=== PATIENT | female | born 1945 | race Caucasian/White ===

== ENCOUNTER 2016-08-04 09:11 | Inpatient (IN) | payer BC, MEDICARE ==
[2016-07-28 17:29] LABS: HEMATOCRIT 38.9 % (36.0-48.0); HEMOGLOBIN 13.2 g/dL (12.0-16.0)
[2016-07-28 17:39] LABS: CALCIUM, SERUM 8.9 MG/DL (8.5-10.4); CHLORIDE, SERUM 100 MMOL/L (96-112); CO2 (CARBON DIOXIDE) 31 MMOL/L (24-34); CREATININE 1.55 MG/DL (0.55-1.02); GFR AFRICAN AMERICAN 39 ML/MIN (>=60); GFR NON AFRICAN AMERICAN 34 ML/MIN (>=60); POTASSIUM, SERUM 3.8 MMOL/L (3.5-5.3); SODIUM, SERUM 141 MMOL/L (135-148)
[2016-07-28 17:41] LABS: BUN (BLOOD UREA NITROGEN) 25 MG/DL (6-23); GLUCOSE, SERUM 183 MG/DL (60-99)
--- NOTE | ~2016-08-04 | CN ---
Consultation Report [facility] [address] [place]. [address] NAME: ITALIA EPREZ : 47 STATUS : ADM IN PAT#: [id number] AGE: 71 ADM/REG DATE : 08/04/16 MR#: [id number] REPORT SERV DATE: 08/05/16 DICTATED BY: ALISHA PAZ DATE: 08/05/16 REPORT STATUS : Draft TRANSCRIBED BY: MODChetan DATE: 08/05/16 MEDICAL CONSULTATION NOTE DATE OF CONSULTATION: EXAMINING PHYSICIAN: Alisha Paz M.D. REASON FOR CONSULTATION: Diabetes control, on insulin pump, and hypoglycemia. HISTORY OF PRESENT ILLNESS: This is a morbidly obese 71-year-old white female, who is followed by Dr. Marla Del Toro. She has an insulin pump with a basal rate of 30 units/hour. They do not use a bolus for meals and allow the pump to calculate the correction factor by connection with their OneTouch meter. She had trouble waking up this morning, blood sugar was 54. Blood sugars usually run between 98 and 140 at home with the consistent basal rate of 72 units/24 hours or 3 units/hour. The patient is alert now, has no complaints. She had phase 1 of her back surgery and is going to have phase 2 tomorrow. The insulin pump has been removed by her . PAST MEDICAL HISTORY: She has had the insulin pump for the last four or five years. She does have depression, history of C difficile in 2012 with diverticulitis, a history of hiatal hernia. Diabetes type 2 in the face of morbid obesity for many years, approximately 11. She does have some swelling of her lower extremities, high blood pressure, hyperkalemia, hypersomnolence. She had left heel spur removed, had EGD on 10/18/2006, right knee surgery, and total knee replaced on the right side. Irritable bowel syndrome and hemorrhoids. She has had tonsillectomy, adenoidectomy, and appendectomy in the past. She has chronic kidney disease stage 3, history of anemia, vitamin B12 deficient, history of osteoporosis, pancreatitis, stomach ulcer, osteopenia, and distal symmetric polyneuropathy. HOME MEDICATIONS: Are listed as follows: Insulin 3-5 units continuous infusion for basal rate, metolazone 5 mg daily, Protonix 40 mg p.o. daily, propranolol LA 120 mg p.o. every evening, sertraline 100 mg p.o. q.p.m., valsartan 320 mg p.o. q.p.m., Xanax 1 mg p.o. three times a day as needed for anxiety, atorvastatin 10 mg p.o. at bedtime, Plavix 75 mg p.o. daily, Pristiq 50 mg p.o. each evening, gabapentin 600 mg p.o. t.i.d., and hydrocodone 5/325 one p.o. q.4 hours p.r.n. pain. ALLERGIES: INCLUDE THE FOLLOWING: PENICILLIN, ASPIRIN, WITH ADVERSE REACTIONS TO NONSTEROIDAL ANTI INFLAMMATORY AGENTS WITH NAUSEA AND VOMITING. SULFADIAZINE WHICH UPSETS HER STOMACH, AND ADHESIVE TAPE WHICH CAUSES A RASH AND LOOSENING OF HER SKIN. SOCIAL HISTORY: She is . Lives with her . They attend the [employer] in [place] and the [employer]. She does not smoke or drink. She worked Consultation [address] 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 She was raised in [place] and has now moved back here. They do have a daughter, who is alive and well. Attends the [employer]. FAMILY HISTORY: Diabetes runs in the family. REVIEW OF SYSTEMS: She has had somnolence today, but the back pain is being corrected now, history of depression, high blood pressure, diabetes have been the problems in the past. She has no shortness of breath, chest pain, fever, chills, night sweats, melena, hematemesis, nausea, vomiting, diarrhea, unilateral weakness, fits, seizures, or convulsions. The remainder of the review of systems is negative. PHYSICAL EXAMINATION: GENERAL: Morbidly obese, white female, in no acute distress. VITAL SIGNS: Her blood pressure is 156/72 with a heart rate of 88, respiratory rate 16, afebrile. HEENT: EOMI. Sclerae clear. Conjunctivae pink. NECK: No bruit. No JVD. CHEST: Clear to A and P. HEART: Regular S1, S2 without murmur, rub, or click. ABDOMEN: Grossly obese. Nontender. Bowel sounds positive. No HSM. EXTREMITIES: Have no edema. She does have distal pulses intact in her dorsalis pedis and posterior tibial. NEUROLOGIC: She withdraws to plantar stimulation. She has leg immobilizers on now. SKIN: Without rash, ecchymosis, or bruising. LYMPHATICS: There is no adenopathy palpable. LABORATORY DATA: Her glucose this morning as low as 58 on OneTouch, but all of them have been less than 100 on the 3 units/hour and limited diet. I believe we should stop the insulin pump. Her creatinine was 1.55 with BUN 25, sodium 141, potassium 3.8, glucose on admission was 183. Her hemoglobin is 13, hematocrit 38.9. ASSESSMENT: 1. Diabetes type 2 with insulin resistance, likely secondary to morbid obesity. Insulin pump has been removed by her , and we will start subcutaneous insulin Levemir at half the rate at 36 units per 24 hours and see how this does for her with small boluses of 5 units before each meal, holding if the blood sugar is less than 80. 2. Hypertension, it is usually okay in the 120 range. Postop, it was slightly elevated at 156, though intraoperatively review was 120. We will not change medication. 3. Low back pain with intention for surgical relief. Plan for second step of the surgery tomorrow. 4. Depression, on antidepressants. Consultation Report [facility] [address] [place]. [address] NAME: ITALIA PEREZ : 47 STATUS : ADM IN [facility]#: [id number] AGE: 71 ADM/REG DATE : 08/04/16 MR#: [id number] REPORT SERV DATE: 08/05/16 DICTATED BY: ALISHA PAZ DATE: 08/05/16 REPORT STATUS : Draft TRANSCRIBED BY: MODL DATE: 08/05/16 5. Morbid obesity. 6. Hypoglycemia with pump. It has been discontinued. This is causing some hypoglycemic encephalopathy. The patient is getting better, now having eaten. We will start the long-acting insulin tonight and boluses now if she is eating. Thank you for this consultation. We will continue to follow along with you. CHU/MODL Alisha Paz M.D. / [id number] CC: Alexx Smith II, M.D.
--- NOTE | ~2016-08-04 | OP ---
Record Of Operation [facility] [address] [place]. [address] NAME: ITALIA PEREZ : 47 STATUS : ADM IN PAT#: [id number] AGE: 71 ADM/REG DATE : 08/04/16 MR#: [id number] REPORT SERV DATE: 08/08/16 DICTATED BY: MEGAN BARRERA II DATE: 08/08/16 REPORT STATUS : Draft TRANSCRIBED BY: MODL DATE: 08/08/16 DATE OF PROCEDURE: 08/04/2016 PREOPERATIVE DIAGNOSES: 1. Severe spinal stenosis, L3-4, L4-5 with severe facet changes and facet instability L3- L4, L4-5. 2. Morbid obesity. 3. Intractable leg pains with functional paraplegia. POSTOPERATIVE DIAGNOSES: 1. Severe spinal stenosis, L3-4, L4-5 with severe facet changes and facet instability L3- L4, L4-5. 2. Morbid obesity. 3. Intractable leg pains with functional paraplegia. PROCEDURE: 1. L3-4, L4-5, anterior interbody arthrodesis. 2. Application of prosthetic devices L3-4, L4-5. 3. Anterior instrumentation, L3-4 (we were unable to successfully place instrumentation at L4-5). 4. Use of allograft substitute and bone morphogenic protein. SURGEON: Megan Barrera M.D. FLUIDS: 1500 mL LR. ESTIMATED BLOOD LOSS: 75 mL. DRAINS: No drains. COMPLICATIONS: No complications. ANTIBIOTIC: Preoperatively. IMPLANTS: Globus. PREOPERATIVE HISTORY: This is a very friendly, 71-year-old female, who is very intelligent and appropriate but unfortunately has been essentially home bound since March because of severe pains radiating into the buttocks and legs especially on the right. She is largely having to stay in the bed. Leg pain is so severe when she stands to walk. She is able to mobilize into the kitchen and can have family over to visit her. However, she is just simply miserable. Her is able to help her some. He is still working overall. They both are very pleasant and very keenly aware of this unfortunate situation that she is facing. They of course realize she is morbidly obese. Her body mass index is 52 but she again is found to have severe stenosis at L3-L4 and L4-5. This overall we discussed was going to be very difficult case for many surgical approach perspective. I overall felt that Record Of Operation [facility] [address] [facility] [address] NAME: ITALIA PEREZ : 47 STATUS : ADM IN PAT#: [id number] AGE: 71 ADM/REG DATE : 08/04/16 MR#: [id number] REPORT SERV DATE: 08/08/16 DICTATED BY: MEGAN BARRERA II DATE: 08/08/16 REPORT STATUS : Draft TRANSCRIBED BY: MODChetan DATE: 08/08/16 an anterior approach alone would not likely suffice. Additionally, I did not think a posterior approach alone would largely suffice so overall felt that we needed to get some type of stability on the anterior column and also be able to hopefully get a successful arthrodesis. I overall felt that a minimally invasive lateral approach was likely our best option from a risk benefit perspective. I discussed with her and her the approach as well as the downside risks potentially to femoral nerve branches. We also discussed the potential for blood loss as well as again still needing the stage II posterior decompression and hopefully adjunctive stabilization. PROCEDURE: After informed consent was obtained, the patient was brought to the operating room at her request and general anesthesia achieved. At this point, our difficulties began because of her size. She again is very large, and it took double the amount of staff to help position her. The time of the positioning until the time of the actual initiation of surgery took approximately double the normal time. We then brought in fluoroscopy and confirmed we were able to successfully see the L3-L4 and L4-L5 disk spaces. The iliac crest appeared to be manageable in terms of its position relative to the L4-L5 disk space. At this point, the left lateral flank was prepped and draped in a sterile fashion. The incision was then made in a vertical manner. We then dissected down to the fascia. Again, this was an extremely deep wound because of her size. We had to use approximately 140 cm blades on the Globus retractor system. We then had neuro-monitoring available and did not identify any femoral nerve branches along the anterior third of the psoas muscle. I went more anterior to the psoas but not completely anterior to it. We did dissect through the very anterior 25% of the psoas muscle using neuro monitoring. The tubular retractor was then established at L3-L4. Under loupe magnification head lamp, the disk was now removed with the pituitary rongeurs, Kerrison rongeurs, and the curettes. The upgoing and downgoing pituitaries were used as well as the rasps. Ultimately, we were able to remove a very decent amount of disk and cartilage from the endplates. The subchondral bone was not violated. Following irrigation, the bone morphogenic protein was placed into the anterior column. We then placed the expandable prosthetic device into L3-L4. This was placed across the apophyseal ring bilaterally. Next, we then removed the protractor and then essentially recreated the tubular retractor set up. We had to also again use neuro-monitoring. We were able to access the L4-L5 disk space. We did fight with the iliac crest as anticipated but I was able to successfully dock the tubular retractor over the L4-5 disk space. At this point, the knife was used to incise the annulus followed by diskectomy. The angle was not ideal but we were able to still manage the angle and remove disc and cartilage from the endplates. Subchondral bone was minimally violated because of the angle. At this point, irrigation was performed, and the prosthetic device well placed into the L4-L5 anterior column across the apophyseal rings bilaterally. At this point, the prosthetic device was acceptably distracted for better fit. At this point, I was pleased with the diskectomy at L3-4 and L4-5 and overall, felt that we had laid a reasonable ground work for reconstructing her L3-L4 and L4-5 levels. Record Of Operation [facility] [address] [facility] [place]. [address] NAME: ITALIA PEREZ : 47 STATUS : ADM IN PAT#: [id number] AGE: 71 ADM/REG DATE : 08/04/16 MR#: [id number] REPORT SERV DATE: 08/08/16 DICTATED BY: MEGAN BARRERA II DATE: 08/08/16 REPORT STATUS : Draft TRANSCRIBED BY: MODL DATE: 08/08/16 At this point, we then placed an anterior plate into L3 and L4. A short screw was placed into L3 and L4 so as to not hopefully create a stress riser. At this point, multiplanar imaging confirmed acceptable placement of the implants. We could not safely place an L4-L5 plate and so therefore, did not place one at L4-L5. Next, the standard closure was performed. We spent a significant amount of time closing the fascia so as to hopefully decrease the risk of a hernia. Overall again, I cannot stress enough how difficult this case was because of her size but overall given the complexity of the case and her size, I felt fairly satisfied with the technical aspects of the case. However, it simply did take a long time and overall at this point, she was safely extubated and transferred back to PACU following standard dressing application. JJ/MYLESL Megan Barrera II, M.D. / [id number] CC: Alexx Smith II, M.D.
--- NOTE | ~2016-08-04 | CN ---
Consultation Report [facility] [address] [place]. [address] NAME: ITALIA PEREZ : 47 STATUS : ADM IN PAT#: [id number] AGE: 71 ADM/REG DATE : 08/04/16 MR#: [id number] REPORT SERV DATE: 08/06/16 DICTATED BY: DATE: REPORT STATUS : Draft TRANSCRIBED BY: MODL DATE: 08/06/16 NEUROLOGY CONSULTATION DATE OF CONSULTATION: 08/06/2016 REASON FOR CONSULT: Possible stroke. HISTORY OF PRESENT ILLNESS: This is a 71-year-old female presented to [facility] for two phase back surgery. The patient has had first stage of back surgery on 08/04/2016. Since then, the patient was noted to have progressive encephalopathy with the patient at times cannot state her name and cannot state her birthday, does not recognize the family members such as her and her son and was noted to have difficulty following commands and at time was noted to have lethargy and difficulty to arouse and altered sensation. The patient at times was noted to have hypoglycemic episodes, require resuscitation and subsequent removal of the patient's insulin pump prior to the hospitalization and denies similar events in the past, and the patient's denies any current apparent focal weakness or numbness. No reports of seizure like activity was otherwise noted. The patient's also denies any recent increased psychosocial stress or any emotional difficulties. The patient prior to the surgery was not noted to have any fever, chills, nausea, vomiting, or recent illness. PAST MEDICAL HISTORY: The patient's past medical history is significant for type 2 diabetes, as well as history of insulin pump for the past four to five years with a history of depression as well as C. difficile infection, diverticulitis, hiatal hernia, morbid obesity, hypersomnolence, hyperkalemia, with the patient noted to have chronic kidney disease stage III, history of vitamin B12 deficiency, as well as a prior history of osteoporosis, gastric ulcer, and distal symmetric polyneuropathy. No reports of cognitive deficits or memory difficulty was reported prior to the hospitalization. SOCIAL HISTORY: Per medical record, the patient does not have any tobacco, alcohol, or recreational drug usage. FAMILY HISTORY: Significant for diabetes. ALLERGIES: THE PATIENT WAS NOTED TO HAVE FAIRLY EXTENSIVE ALLERGY HISTORY CONSISTS OF PENICILLIN, ASPIRIN, NONSTEROIDAL ANTI-INFLAMMATORY DRUGS, SULFA, AND ADHESIVE TAPE. MEDICATIONS: The patient's home medications consist of Xanax, Lipitor, Plavix, Pristiq, Neurontin, Follett, Humalog, Zaroxolyn, Protonix, Inderal, Zoloft, and Diovan. REVIEW OF SYSTEMS: Unfortunately is unable to be obtained from the patient secondary to the patient's current mental status. Consultation Report [address] [place]. [address] NAME: ITALIA PEREZ : 47 STATUS : ADM IN [facility]#: [id number] AGE: 71 ADM/REG DATE : 08/04/16 MR#: [id number] REPORT SERV DATE: 08/06/16 DICTATED BY: DATE: REPORT STATUS : Draft TRANSCRIBED BY: JAYA DATE: 08/06/16 PHYSICAL EXAMINATION: VITAL SIGNS: Overnight, the patient was noted to have vital signs with T-max of 100.8, heart rate of 66 to 84, respirations of 12 to 20, and blood pressure of 105 to 143 over 49 to 88. GENERAL: The patient is well developed, well nourished, in no acute distress. CARDIOVASCULAR: Regular rate and rhythm. No carotid bruits were otherwise auscultated. PULMONARY: Clear to auscultation bilaterally. NEUROLOGICAL EXAMINATION: Generally, the patient is alert, unable to answer orientation questions, able to repeat examiner's questions. The patient is only able to follow rare simple commands and have difficulties even with visual cues. Otherwise, the patient does demonstrated spontaneous movement of the bilateral upper extremity against gravity. Also, mild tremor and question of the myoclonus jerk was noted, especially in the right upper extremity. Difficult to evaluate if the patient has asterixis as the patient refused to maintain bilateral upper extremity on extension on for a period of time. The patient otherwise was noted to have roughly symmetrical facial expression. Pupils equal, round, and reactive. Horizontal eye movement was noted with visual stimulus tracking with blink to threat response noted to be intact. The patient does demonstrated sensation in bilateral upper extremity as well as sensation to noxious stimulation in bilateral lower extremity. Deep tendon reflex was 2+ in bilateral upper extremity and 3+ in bilateral lower extremity at the time of evaluation. Minimal spontaneous movement in the bilateral lower extremity was otherwise noted. Gait and cerebellar examination is unable to be performed secondary to the patient's current mental status. LABORATORY STUDIES: Demonstrated a white blood cell count of 13.6, hemoglobin of 9.9, hematocrit of 29.2, and platelet count of 159. Chemistry panel; sodium of 135, potassium of 4.7, chloride of 99, bicarb of 24, BUN of 22, creatinine of 1.63, glucose of 254, calcium of 8.5. Serum pH of 7.31, pCO2 of 50, pO2 of 114. Bicarb of 24.5 and O2 saturation of 97.9. Urinalysis demonstrated trace leukocyte esterase, but negative nitrite. No neuro imaging was otherwise available at the time of evaluation. IMPRESSION: Encephalopathy, with the symptom ongoing since the surgery on 08/04/2016, with the patient noted to be confused as well as disoriented and not able to state her name, birthday, or recognize the family members. The patient's family denies similar events in the past. No reports of cognitive deficits. On examination, the patient is able to follow rare commands even with visual cues. The patient, otherwise is unable to answer any orientation question, but is able to repeat a question. Appeared to be somewhat emotional on examination as well. Otherwise, myoclonus jerk was noted. The right upper extremity appeared to be greater with the spontaneous bilateral upper extremity movement noted against gravity. At this time, concern for possible metabolic etiology versus medication side effect versus embolic stroke versus seizure versus psychogenic etiology. We will obtain laboratory study. We will hold or minimize pain medications and narcotics. We will obtain MRI of the brain as well as EEG in the morning. RECOMMENDATION: 1. MRI of the brain without contrast. Consultation Report [address] [place]. [address] NAME: ITALIA PEREZ : 47 STATUS : ADM IN [facility]#: [id number] AGE: 71 ADM/REG DATE : 08/04/16 MR#: [id number] REPORT SERV DATE: 08/06/16 DICTATED BY: DATE: REPORT STATUS : Draft TRANSCRIBED BY: MODL DATE: 08/06/16 2. EEG in the morning. 3. We will hold and minimize narcotics. 4. Serum ammonia, TSH, free T4, vitamin B12, folate, and thiamine level. [facility]/MODL Michael Barker MD / [id number] CC: Alexx Smith II, M.D.
--- NOTE | ~2016-08-04 | DS ---
Discharge Summary [facility] [address] [place]. [address] NAME: ITALIA PEREZ : 47 STATUS : DIS IN PAT#: [id number] AGE: 71 ADM/REG DATE : 08/04/16 MR#: [id number] REPORT SERV DATE: 08/25/16 DICTATED BY: MEGAN BARRERA II DATE: 08/24/16 REPORT STATUS : Draft TRANSCRIBED BY: JAYA DATE: 08/24/16 Data Collection from hospitalization DISCHARGE DIAGNOSES: 1. Severe spinal stenosis at L3-L4 and L4-L5 with severe facet changes and facet instability at L3-L4 and L4-L5. 2. Morbid obesity. 3. Intractable leg pain with functional paraplegia. 4. Diabetes. 5. Hypertension. 6. Cataracts. CONSULTATIONS: 1. Michael Barker MD. 2. Gabriele Conn M.D. PROCEDURES PERFORMED: 1. L3-4 and L4-5 anterior interbody arthrodesis, application of prosthetic devices at L3-4 and L4-5, anterior instrumentation at L3-4 (we were unable to successfully place instrumentation at L4-5), use of allograft substitute and bone morphogenic protein on 08/04/2016. 2. MRI of the brain without contrast on 08/06/2016. 3. Electroencephalogram on 08/09/2016. PATHOLOGY: Lumbar spine repair - fragmented cartilage and soft tissue. No evidence was seen of an infectious or neoplastic process. MEDICATIONS: Lipitor 20 mg at bedtime, Lotensin 10 mg daily, vitamin B12 1000 mcg daily, Pristiq 50 mg every evening, Pepcid 20 mg twice a day, Neurontin 100 mg every eight hours, Apresoline 25 mg every eight hours, [place] 5/325 one tablet every four hours as needed, Humalog 3-5 units subcutaneously continuous infusion as instructed, Protonix 40 mg at bedtime, Zoloft 100 mg every evening, and vancomycin 125 mg every six hours. CONDITION AT DISCHARGE: Stable. DISPOSITION: The patient was discharged home to be followed by home health care on an 1800- calorie diabetic diet with activities as instructed. She would follow up with me on 08/31/2016. She would follow up with Dr. Del Toro 7 to 10 days following discharge. HOSPITAL COURSE: This is a 71-year-old female who presented for examination of her tailbone. The patient said she fell the week of . She said she was lifting something off the floor and lost her balance causing her to fall directly on her tailbone. She went to the emergency room the following day and said she did not receive any medical treatment. She said that within a few days the pain had gotten worse and she presented to [facility]. She reported a pain level of 9/10 and she said this was the level after her pain medications. She says the leg pain is severe when she has to stand and walk. She said she was simply miserable. She is morbidly obese. Her body mass index is 52. She was found to have severe stenosis at L3-L4 and L4-L5. Treatment options were discussed and it was Discharge Summary [address] [place]. [address] NAME: ITALIA PEREZ : 47 STATUS : DIS IN PAT#: [id number] AGE: 71 ADM/REG DATE : 08/04/16 MR#: [id number] REPORT SERV DATE: 08/25/16 DICTATED BY: MEGAN BARRERA II DATE: 08/24/16 REPORT STATUS : Draft TRANSCRIBED BY: JAYA DATE: 08/24/16 elected to proceed with surgical intervention. She was admitted to the hospital at this time for further evaluation and treatment. Upon admission, she was taken to the operating room where she underwent the above-mentioned procedure. She tolerated this well, and there were no complications. On postop day #1, she was seen by Dr. Gabriele Conn regarding diabetes controlled, on insulin pump, and hypoglycemia. She had some trouble waking up that morning. Her blood sugar was found to be 54. She had undergone diabetes education. The patient had undergone phase 1 of her back surgery and was going to have phase 2 the following day. Her insulin pump had been removed by her . He felt that we should stop insulin pump. Her creatinine level was 1.55. Her type 2 diabetes with insulin resistance was felt likely secondary to morbid obesity. We were going to start subcutaneous insulin Levemir at half the rate and see how she does with this with small boluses of 5 units before each meal. We would hold this if blood sugar was less than 80. Postoperatively, her blood pressure had been slightly elevated at 156, though intraoperatively, it was 120. We were not going to change her medication. The second step of her surgery was planned for the following day. She was on antidepressants for her depression. On 08/06/2016, the patient was going to undergo surgical intervention that had an altered mental status. She was felt to have encephalopathy and Dr. Michael Barker saw the patient in consultation regarding possible stroke. Since the first stage of her back surgery on 08/04/2016, she has had progressive encephalopathy and at times she could not state her name or birthday and did not recognize family members such as her and son. She had difficulty following commands, and at times, was found to have lethargy with difficult to arouse and had altered sensation. She has had some hypoglycemic episodes and required resuscitation with subsequent removal of her insulin pump. The patient has been denied any similar events in the past. The patient has been denied any current apparent focal weakness or numbness. There were no reports of seizure-like activity noted. Her also denied any recent increased psychosocial stress or any emotional difficulties. She appeared somewhat emotional on exam, otherwise, myoclonic jerk was noted. The right upper extremity appeared to be greater with the spontaneous bilateral upper extremity movement noted against gravity. At this time, there was concern for possible metabolic etiology versus medication side effect versus embolic stroke versus seizure versus psychogenic etiology. Labs were going to be obtained. We would hold or minimize pain medication and narcotics. An MRI of the brain as well as an EEG were requested. Serum ammonia, TSH, free T4, vitamin B12, folate, and thiamine levels were going to be checked. MRI of the brain without contrast was performed. No acute infarction or bleed was seen. There was mild atrophy. There was a mild amount of gliotic changes secondary to prior small vessel ischemic event. On 08/07/2016, her T-max was 100.1. She could follow simple commands. Repeat ammonia level was going to be checked. We would treat this if there was persistent elevation. Vitamin B cell supplementation and thiamine trial were going to began. She seems over-sedated still, but was easily aroused. She was not speaking. The following day, her family had reported mild symptom improvement. She was able to state her name and birthday. Her T-max was 99.6. Ammonia level was 36. She was restless and still had some confusion. On 08/09/2016, electroencephalogram was performed. It was considered abnormal secondary to the presence of generalized slowing as well as right-sided slowing and decreased amplitude, compared to the left side which suggests possible right hemisphere dysfunction or structural abnormality. Discharge Summary [facility] [address] [facility] [address] NAME: ITALIA PEREZ : 47 STATUS : DIS IN PAT#: [id number] AGE: 71 ADM/REG DATE : 08/04/16 MR#: [id number] REPORT SERV DATE: 08/25/16 DICTATED BY: MEGAN BARRERA II DATE: 08/24/16 REPORT STATUS : Draft TRANSCRIBED BY: MODL DATE: 08/24/16 In addition, occasional triphasic wave was seen throughout her EEG study. There was concern for possible metabolic etiology for her confusion. Supportive care continued. Vitamin B12 supplementation was continued. On 08/10/2016, urinalysis was going to be checked. It was suspected that medication was playing a major role in her symptom. Dilaudid, Valium, and Benadryl were discontinued and we decreased the dose of Xanax and Neurontin. Urinalysis was going to be checked. On 08/11/2016, she seemed much better. She was awake and talkative. Her acute encephalopathy was resolving and was felt most likely due to medications. She was eating well. She was not complaining of pain at all. On 08/12/2016, she had two formed stools. She was found to be C. difficile positive. She has a history of C. difficile two years ago. She was progressing with Physical Therapy. She denied any pain. Discharge planning was performed. Oral vancomycin continued. Hydralazine was being given as needed. On 08/14/2016, she had no new complaints. She was alert and cooperative. The patient wanted to continue on her insulin pump at home. She refused Levemir/NovoLog/70/30. Stage two of her surgical intervention would be performed at a later date. Discharge instructions were given. Due to her improved and stable condition, she was discharged home with the above-stated instructions. Information collected by: Paola Mustafa I submit the above information as my discharge summary. GABE/JAYA Megan Barrera II, M.D. / [id number] CC: Alexx Smith II, M.D. Chun C. Huang, MD
--- NOTE | ~2016-08-04 | EEG ---
Electroencephalogram [facility] [address] [place]. [address] NAME: ITALIA PEREZ : 47 STATUS : ADM IN PAT#: [id number] AGE: 71 ADM/REG DATE : 08/04/16 MR#: [id number] REPORT SERV DATE: 08/09/16 DICTATED BY: DATE: REPORT STATUS : Draft TRANSCRIBED BY: MODL DATE: 08/09/16 CLINICAL INDICATION: Encephalopathy. DESCRIPTION: This EEG was performed using 10/20 electrode placement system. During the EEG study, the patient was noted to have mildly asymmetric background activity with right-sided hemisphere appeared to be slower with mild decreased amplitude compared to her left side. The patient, in addition, was noted to have intermittent generalized slowing mostly in the theta region with slowing at times to the delta region. Otherwise, at times, the patient's brain activity reached the alpha region at roughly 9 hertz. Photic stimulation was performed. No clear driving response was seen. The patient, in addition, was also noted to have occasional triphasic wave, no electrographic seizure was seen during today's EEG study. Hyperventilation was not performed secondary to patient's mental status as well as underlying medical condition. During her EEG study, no electrographic seizure was otherwise noted. No seizure discharge was seen. INTERPRETATION: This EEG study obtained mostly during awake, but confused state. It may be considered abnormal secondary to presence of generalized slowing, as well as right-sided slowing and decreased amplitude compared to the left side suggests possible right hemisphere dysfunction or structural abnormality. In addition, occasional triphasic wave was also seen throughout her EEG study. Concern for possible metabolic etiology for patient's confusion. Clinical correlation is otherwise recommended. [facility]/MODL Michael Barker MD / [id number] CC: Alexx Smith II, M.D.
[~2016-08-04 09:11] MED LIST: ACTONEL PO; ADVIL PO; AMB10 PO; BENTYL10 PO; BUM1 PO; CAT1 PO; DCN100 PO; DIOVAN320 MG PO; ENABLEX15 PO; EXFORGE1 TA3 PO; FLEX PO; FOLIC ACID400 MC1 PO; HUMALOG; HUMAPUMP SC; I10 PO; I20 PO; INDE120LA PO; IRON IV; LEVBID PO; LEVSINTAB PO; LIPITOR10 PO; LOP25 PO; LORTAB 5 PO; METHOC500B PO; MICARDIS40 PO; MULTIVITAMIN PO; NEUR100 PO; NEUR600 PO; NEUR800 PO; NORCO1 TA1 PO; PLAVIX PO; PRAVAC PO; PRILOSEC40 MG PO; PRISTIQ50 MG PO; PROTONIX PO; PROZAC 20 MG CA20 MG OR; PROZAC40 MG PO; REQUIP3 PO; SKELAXIN8 PO; SPIRO25 PO; TRICOR145 PO; VITAMIN D; VITAMIN D1000 UNI1 PO; VITAMIN D2000 UNIT PO; XANAX1 MG PO; Z5 PO; ZAROX2.5B PO; ZAROXOLYN10 MG OR; ZETIA PO; ZINC PO; ZOL100 PO; [UNRECOGNIZED DRUG - OTHER] PO; [UNRECOGNIZED DRUG - OTHER] SC
[2016-08-06 07:56] LABS: BASOPHILS 0.1 %; BASOPHILS ABSOLUTE 0.02 10/3/uL (0.0-0.16); EOSINOPHILS 0.4 %; EOSINOPHILS ABSOLUTE 0.05 10/3/uL (0.0-0.53); IMMATURE GRANULOCYTES 0.4 %; IMMATURE GRANULOCYTES ABSOLUTE 0.06 10/3/uL (0.0-0.11); LYMPHOCYTES 10.7 %; LYMPHOCYTES ABSOLUTE 1.45 10/3/uL (0.67-4.30); MEAN CORPUS HGB CONC 33.9 g/dL (32.0-36.0); MEAN CORPUSCULAR HEMOGLOB 31.6 pg (26.0-34.0); MEAN CORPUSCULAR VOLUME 93.3 fL (80-100); MONOCYTES 13.7 %; MONOCYTES ABSOLUTE 1.86 10/3/uL (0.21-1.20); NEUTROPHILS 74.7 %; NEUTROPHILS ABSOLUTE 10.16 10/3/uL (2.02-8.40); RBC DISTRIBUTION WIDTH 12.7 % (12.0-16.0)
[2016-08-06 08:00] LABS: HEMATOCRIT 29.2 % (36.0-48.0); HEMOGLOBIN 9.9 g/dL (12.0-16.0); MANUAL DIFF NO %; PLATELET COUNT 159 10/3/uL (150-400); RED CELL COUNT 3.13 10/6/uL (4.0-5.6); WHITE BLOOD CELLS 13.6 10/3/uL (4.5-10.5)
[2016-08-06 08:12] LABS: BUN (BLOOD UREA NITROGEN) 22 MG/DL (6-23); CALCIUM, SERUM 8.5 MG/DL (8.5-10.4); CHLORIDE, SERUM 99 MMOL/L (96-112); CO2 (CARBON DIOXIDE) 24 MMOL/L (24-34); CREATININE 1.63 MG/DL (0.55-1.02); GFR AFRICAN AMERICAN 37 ML/MIN (>=60); GFR NON AFRICAN AMERICAN 32 ML/MIN (>=60); GLUCOSE, SERUM 254 MG/DL (60-99); POTASSIUM, SERUM 4.7 MMOL/L (3.5-5.3); SODIUM, SERUM 135 MMOL/L (135-148)
[2016-08-06 12:32] LABS: INSTRUMENT SERIAL # 8083
[2016-08-06 12:33] LABS: ALLENS TEST Pos; CARBOXYHEMOGLOBIN 0.7 % (0-3); DEVICE NC; HCO3 (ACTUAL BICARBONATE) 24.5 MEQ/L (23-27); HEMOBLOGIN CONTENT 10.2 G/DL (12-16); METHEMOGLOBIN 0.3 % (0-3); O2 CONTENT 14.1 VOL% (18-24); OPERATOR ID 13624; PCO2 (CO2 TENSION) 50 MMHG (35-45); PO2 (O2 TENSION) 114 MMHG (79-93); SAMPLE Arterial; pH 7.31 (7.37-7.43)
[2016-08-06 14:33] LABS: ASCORBIC ACID (UR NOT ORDER) NEG (NEG); BILIRUBIN, URINE NEGATIVE (NEG); KETONE, URINE TRACE MG/DL (NEG); LEUKOCYTE ESTERASE(NOT OR TRACE (NEG); WBC (NOT ORDERED) (RFLEX) 3 (0-5)
[2016-08-06 19:01] LABS: FOLATE 9.2 NG/ML (>5.2); FREE T4 1.35 NG/DL (0.76-1.46); ULTRASENSITIVE TSH 2.1 MCIU/ML (0.358-3.740)
[2016-08-07 06:12] LABS: CALCIUM, SERUM 8.4 MG/DL (8.5-10.4); CHLORIDE, SERUM 101 MMOL/L (96-112); CO2 (CARBON DIOXIDE) 26 MMOL/L (24-34); CREATININE 1.57 MG/DL (0.55-1.02); GFR AFRICAN AMERICAN 38 ML/MIN (>=60); GFR NON AFRICAN AMERICAN 33 ML/MIN (>=60); POTASSIUM, SERUM 4.2 MMOL/L (3.5-5.3); SODIUM, SERUM 138 MMOL/L (135-148); TRIGLYCERIDE 135 MG/DL (< 150)
[2016-08-07 06:13] LABS: BUN (BLOOD UREA NITROGEN) 26 MG/DL (6-23); CHOL/HDL RATIO(NOT ORDER) 3.7 (0-5); CHOLESTEROL 126 MG/DL (< 200); GLUCOSE, SERUM 195 MG/DL (60-99); HDL CHOLESTEROL 34 MG/DL (> 49); LDL CHOLESTEROL 65 MG/DL (< 130); NON-HDL CHOLESTEROL 92 MG/DL (< 160)
[2016-08-07 06:45] LABS: BASOPHILS 0.1 %; BASOPHILS ABSOLUTE 0.01 10/3/uL (0.0-0.16); EOSINOPHILS 0.8 %; EOSINOPHILS ABSOLUTE 0.08 10/3/uL (0.0-0.53); HEMATOCRIT 26.9 % (36.0-48.0); IMMATURE GRANULOCYTES 0.3 %; IMMATURE GRANULOCYTES ABSOLUTE 0.03 10/3/uL (0.0-0.11); LYMPHOCYTES 13.2 %; LYMPHOCYTES ABSOLUTE 1.36 10/3/uL (0.67-4.30); MANUAL DIFF NO %; MEAN CORPUS HGB CONC 33.5 g/dL (32.0-36.0); MEAN CORPUSCULAR HEMOGLOB 31.3 pg (26.0-34.0); MEAN CORPUSCULAR VOLUME 93.4 fL (80-100); MONOCYTES 10.7 %; NEUTROPHILS 74.9 %; NEUTROPHILS ABSOLUTE 7.73 10/3/uL (2.02-8.40); PLATELET COUNT 144 10/3/uL (150-400); RBC DISTRIBUTION WIDTH 12.6 % (12.0-16.0); RED CELL COUNT 2.88 10/6/uL (4.0-5.6); WHITE BLOOD CELLS 10.3 10/3/uL (4.5-10.5)
[2016-08-08 05:20] LABS: BASOPHILS 0.2 %; BASOPHILS ABSOLUTE 0.02 10/3/uL (0.0-0.16); EOSINOPHILS 1.1 %; EOSINOPHILS ABSOLUTE 0.12 10/3/uL (0.0-0.53); HEMATOCRIT 27.8 % (36.0-48.0); HEMOGLOBIN 9.3 g/dL (12.0-16.0); IMMATURE GRANULOCYTES 0.2 %; IMMATURE GRANULOCYTES ABSOLUTE 0.02 10/3/uL (0.0-0.11); LYMPHOCYTES 9.5 %; LYMPHOCYTES ABSOLUTE 1.03 10/3/uL (0.67-4.30); MEAN CORPUS HGB CONC 33.5 g/dL (32.0-36.0); MEAN CORPUSCULAR HEMOGLOB 31.1 pg (26.0-34.0); MEAN PLATELET VOLUME 10.4 fL (9.2-13.0); MONOCYTES 9.8 %; MONOCYTES ABSOLUTE 1.06 10/3/uL (0.21-1.20); NEUTROPHILS 79.2 %; RBC DISTRIBUTION WIDTH 13.1 % (12.0-16.0); RED CELL COUNT 2.99 10/6/uL (4.0-5.6); WHITE BLOOD CELLS 10.9 10/3/uL (4.5-10.5)
[2016-08-08 05:22] LABS: MANUAL DIFF NO %; PLATELET COUNT 193 10/3/uL (150-400)
[2016-08-08 05:26] LABS: BUN (BLOOD UREA NITROGEN) 29 MG/DL (6-23); CALCIUM, SERUM 8.4 MG/DL (8.5-10.4); CHLORIDE, SERUM 103 MMOL/L (96-112); CO2 (CARBON DIOXIDE) 28 MMOL/L (24-34); CREATININE 1.48 MG/DL (0.55-1.02); GFR AFRICAN AMERICAN 41 ML/MIN (>=60); GFR NON AFRICAN AMERICAN 36 ML/MIN (>=60); POTASSIUM, SERUM 4.3 MMOL/L (3.5-5.3); SODIUM, SERUM 140 MMOL/L (135-148)
[2016-08-08 05:27] LABS: GLUCOSE, SERUM 152 MG/DL (60-99)
[2016-08-09 09:41] LABS: HEMATOCRIT 25.8 % (36.0-48.0); HEMOGLOBIN 8.7 g/dL (12.0-16.0)
[2016-08-09 09:52] LABS: CALCIUM, SERUM 8.6 MG/DL (8.5-10.4); CHLORIDE, SERUM 104 MMOL/L (96-112); CO2 (CARBON DIOXIDE) 26 MMOL/L (24-34); CREATININE 1.21 MG/DL (0.55-1.02); GFR AFRICAN AMERICAN 52 ML/MIN (>=60); GFR NON AFRICAN AMERICAN 45 ML/MIN (>=60); POTASSIUM, SERUM 4.3 MMOL/L (3.5-5.3); SODIUM, SERUM 138 MMOL/L (135-148)
[2016-08-09 09:53] LABS: BUN (BLOOD UREA NITROGEN) 25 MG/DL (6-23); GLUCOSE, SERUM 118 MG/DL (60-99)
[2016-08-09 10:01] LABS: ALLENS TEST Pos; BE (BASE EXCESS) 4.5 MEQ/L (0 +/- 2.5); CARBOXYHEMOGLOBIN 0.2 % (0-3); DEVICE NC; HCO3 (ACTUAL BICARBONATE) 30.2 MEQ/L (23-27); HEMOBLOGIN CONTENT 10.4 G/DL (12-16); INSTRUMENT SERIAL # 11843; METHEMOGLOBIN 0.5 % (0-3); O2 CONTENT 14.3 VOL% (18-24); PCO2 (CO2 TENSION) 51 MMHG (35-45); PO2 (O2 TENSION) 108 MMHG (79-93); SAMPLE Arterial; pH 7.39 (7.37-7.43)
[2016-08-09 20:05] LABS: THIAMINE MONOPHOSPHATE 2.2 nmol/L (())
[2016-08-10 08:19] LABS: BASOPHILS 0.1 %; BASOPHILS ABSOLUTE 0.01 10/3/uL (0.0-0.16); EOSINOPHILS 1.6 %; EOSINOPHILS ABSOLUTE 0.15 10/3/uL (0.0-0.53); HEMATOCRIT 25.4 % (36.0-48.0); HEMOGLOBIN 8.6 g/dL (12.0-16.0); IMMATURE GRANULOCYTES 0.3 %; IMMATURE GRANULOCYTES ABSOLUTE 0.03 10/3/uL (0.0-0.11); LYMPHOCYTES 8.1 %; LYMPHOCYTES ABSOLUTE 0.76 10/3/uL (0.67-4.30); MANUAL DIFF NO %; MEAN CORPUS HGB CONC 33.9 g/dL (32.0-36.0); MEAN CORPUSCULAR HEMOGLOB 31.3 pg (26.0-34.0); MEAN CORPUSCULAR VOLUME 92.4 fL (80-100); MEAN PLATELET VOLUME 9.9 fL (9.2-13.0); MONOCYTES 10.1 %; MONOCYTES ABSOLUTE 0.94 10/3/uL (0.21-1.20); NEUTROPHILS 79.8 %; NEUTROPHILS ABSOLUTE 7.45 10/3/uL (2.02-8.40); PLATELET COUNT 210 10/3/uL (150-400); RBC DISTRIBUTION WIDTH 12.8 % (12.0-16.0); RED CELL COUNT 2.75 10/6/uL (4.0-5.6); WHITE BLOOD CELLS 9.3 10/3/uL (4.5-10.5)
[2016-08-10 08:31] LABS: BUN (BLOOD UREA NITROGEN) 25 MG/DL (6-23); CALCIUM, SERUM 8.5 MG/DL (8.5-10.4); CHLORIDE, SERUM 102 MMOL/L (96-112); CO2 (CARBON DIOXIDE) 29 MMOL/L (24-34); CREATININE 1.09 MG/DL (0.55-1.02); GFR AFRICAN AMERICAN 60 ML/MIN (>=60); GFR NON AFRICAN AMERICAN 51 ML/MIN (>=60); GLUCOSE, SERUM 130 MG/DL (60-99); POTASSIUM, SERUM 3.8 MMOL/L (3.5-5.3); SODIUM, SERUM 141 MMOL/L (135-148)
[2016-08-11 00:24] LABS: ASCORBIC ACID (UR NOT ORDER) NEG (NEG); BILIRUBIN, URINE NEGATIVE (NEG); KETONE, URINE NEGATIVE (NEG); LEUKOCYTE ESTERASE(NOT OR NEG (NEG); WBC (NOT ORDERED) (RFLEX) 1 (0-5)
[2016-08-14] MEDS ORDERED: APRES25 PO (13:53)
[2016-08-14] MEDS ORDERED: VANCOCIN HCL125 MG PO (13:54)
[2016-08-14] MEDS ORDERED: LOTE10 PO (13:54)
[2016-08-14] MEDS ORDERED: PEP20 PO (13:55)
[2016-08-14] MEDS ORDERED: CYANO1000T PO (13:55)
[2016-09-24] MEDS ORDERED: ENDOCET1 TA3 PO (12:49)
[2016-09-24] MEDS ORDERED: ZOFRAN4 PO (12:51)
[2016-09-24] MEDS ORDERED: HUMALOGMIX SC (12:58)
[2016-09-24] MEDS ORDERED: LANTUS SC (13:00)
== END 2016-08-14 17:05 | disposition home or self-care (01) | DRG 459 ==
LOC: SDC/OF 09:11 → 3SO 19:40
PROVIDERS: Hospitalist; Nurse Practitioner; Orthopaedic Surgery; Psychiatry & Neurology Neurology
PROC: 4A11X4G Monitoring of Peripheral Nervous Electrical Activity, Intraoperative, External Approach (ICD-10-PCS; 2016-08-04)
PROC: 0SG10A0 Fusion of 2 or more Lumbar Vertebral Joints with Interbody Fusion Device, Anterior Approach, Anterior Column, Open Approach (ICD-10-PCS; principal; 2016-08-04 11:15)
DX: M51.36 Other intervertebral disc degeneration, lumbar region (principal); G93.40 Encephalopathy, unspecified; A04.7 Enterocolitis due to Clostridium difficile; E11.65 Type 2 diabetes mellitus with hyperglycemia; Z68.43 Body mass index [BMI] 50.0-59.9, adult; E66.01 Morbid (severe) obesity due to excess calories; F44.4 Conversion disorder with motor symptom or deficit; Z96.41 Presence of insulin pump (external) (internal); I12.9 Hypertensive chronic kidney disease with stage 1 through stage 4 chronic kidney disease, or unspecified chronic kidney disease; N18.9 Chronic kidney disease, unspecified
CPT/HCPCS: 36600; 70551; 71010; 80048; 80061; 81001; 82140; 82607; 82746; 82805; 82962; 83036; 83735; 84145; 84425; 84439; 84443; 85014; 85018; 85025; 87328; 87493; 87493-59; 87641; 88304; 93005; 95816; 97116-GP; 97162-GP; 97164-GP; 97530-GP; A9270-GY; C1713; J0330; J0360; J0690; J1170; J1644; J2250; J2370; J2405; J2710; J3010; J3411

== ENCOUNTER 2016-08-25 13:01 | Observation (INO) | payer BC, MEDICARE ==
--- NOTE | ~2016-08-25 | DS ---
Discharge Summary [facility] [address] [place]. [address] NAME: ITALIA PEREZ : 47 STATUS : DIS Doc PAT#: [id number] AGE: 71 ADM/REG DATE : 08/25/16 MR#: [id number] REPORT SERV DATE: 08/27/16 DICTATED BY: LAURA BATRES DATE: 08/26/16 REPORT STATUS : Draft TRANSCRIBED BY: MODChetan DATE: 08/26/16 ADMISSION DATE: 08/25/2016 DISCHARGE DATE: 08/26/2016 CONDITION ON DISCHARGE: Stable. DISPOSITION: Discharged to home. DIAGNOSES ON DISCHARGE: 1. Intractable low back pain, resolving. The patient is back with chronic low back pain, but she does take medications for this. 2. Hypoglycemia, resolved. The patient does have fluctuating diabetes mellitus, and she will be getting diabetic education before she leaves the hospital and will also be getting prescriptions for Lantus insulin and NovoLog FlexPen, and the patient has been advised to completely stop the insulin pump, which she agrees and which the agrees also now. 3. Transient ischemic attack, resolved. More likely though "transient ischemic attack" was probably secondary to a hypoglycemic episode rather than a real transient ischemic attack; however, her CT scan of the brain was normal. 4. Recent history of Clostridium difficile infection for which the patient is on p.o. vancomycin. At this time, she will continue and finish up her course of vancomycin for the recent Clostridium difficile infection. 5. Chronic generalized anxiety disorder, for which she is on BuSpar, and I have given her a prescription for the same. 6. Morbid obesity. 7. Obesity hypoventilation syndrome and obstructive sleep apnea, for which the patient uses CPAP. 8. Hypertension, which is stable; dyslipidemia, this is stable. 9. History of diverticulitis, which is stable; chronic kidney disease, stage II to III, which is stable at this time and creatinine is in the 1 range right now. BRIEF HOSPITAL COURSE: The patient is a 71-year-old female patient, who was admitted with signs and symptoms as outlined in history and physical exam on 08/25/2016. She was essentially admitted for the pain control and also continued on sliding scale insulin. The patient also was admitted for observation to make sure that she did not have a full CVA as we were suspecting TIA in this patient. Even though I had hunched at, this was not a TIA and a hypoglycemic episode, and her CT brain was normal. Because of multiple comorbidities and also the intractable low back pain for which the patient complained that she could not even move and get out of the bed, she was hospitalized for observation. This morning of 08/26/2016, the patient said that she feels much better, just states that she wants to go home. She does not want any IV access anymore and just states that she wants prescriptions for her insulin and she will go on. Hence, I am sending her home in stable condition, and I have advised her to stop insulin pump and putting her on Lantus 20 units subcu once a day and NovoLog FlexPen 5 units three times a day with meals. The patient will also get diabetic education before she leaves. I do have the following labs on the patient. First of all, her CBC on the day of discharge shows WBC 6.2, hemoglobin 10.5, hematocrit Discharge Summary [address] [address] NAME: ITALIA PEREZ : 47 STATUS : DIS Doc PAT#: [id number] AGE: 71 ADM/REG DATE : 08/25/16 MR#: [id number] REPORT SERV DATE: 08/27/16 DICTATED BY: LAURA BATRES DATE: 08/26/16 REPORT STATUS : Draft TRANSCRIBED BY: JAYA DATE: 08/26/16 31.9, and platelet count of 255. Electrolyte profile shows sodium 141, potassium 4.2, BUN 14, and creatinine 1.08. The patient did have arterial blood gases, as she does have obstructive sleep apnea and this shows a pH of 7.3, pO2 139, and O2 sats of 98.9 and a pCO2 of 47 and this is on 36% of inspired oxygen. The patient is on a CPAP at home, this is to be noted. The patient also had a urinalysis that came back with moderate amount of blood, hazy appearance, but negative for nitrites, leukocyte esterase. The patient also now is on sliding scale insulin and her sugars again have crept back up in the 200 range. However, with good eating habits and by taking the Lantus insulin at 20 units and 5 units of NovoLog, the patient should be able to control her diabetes better. Her hemoglobin A1c is pending at this time at the time of discharge. Hence, she is being sent home on the following medications: BuSpar 15 mg p.o. b.i.d., which is a new medication for anxiety. The patient will continue her other medications including [place] 5/325 one p.o. every four hours p.r.n., Protonix 40 mg p.o. once a day, Zoloft 100 mg p.o. once a day, Pristiq 50 mg p.o. once a day, vitamin B12, Zanaflex 4 mg p.o. t.i.d., vancomycin 125 mg every six hours for the stipulated period. The patient will also continue her gabapentin 100 mg p.o. every eight hours, Lipitor 20 mg p.o. once a day, hydralazine 25 mg p.o. q.8 hours, benazepril 10 mg once a day, Pepcid 20 mg p.o. b.i.d. Also additionally, she will be on the following insulin regimen: Lantus FlexPen 20 units subcu daily and NovoLog FlexPen 5 units with each meal t.i.d. I have spent about 40 minutes in coordinating discharge care of this patient. RRA/MODL Laura Batres M.D. / [id number] CC: Alexx Gomez M.D.
--- NOTE | ~2016-08-25 | HP ---
History And Physical [place] [address] [facility] [place]. [address] NAME: ITALIA GAMBOA : 47 STATUS : ADM Doc PAT#: [id number] AGE: 71 ADM/REG DATE : 08/25/16 MR#: [id number] REPORT SERV DATE: 08/25/16 DICTATED BY: LAURA BATRES DATE: 08/25/16 REPORT STATUS : Draft TRANSCRIBED BY: MODChetan DATE: 08/25/16 DATE OF ADMISSION: 08/25/2016 HISTORY OF PRESENT ILLNESS: Ms Gamboa is a 71-year-old female patient, who was brought in today by the . Actually, the called the paramedics when he found along with the home health nurses at [facility] who keep checking on the patient today this morning that she was barely responsive, and she had a few facial twitches/facial droop and had extremely slurred speech and was practically unarousable according to the . When paramedics got there, her blood glucose level was as low as 22. The patient received glucose and she was brought to the ER. In the ER, the patient had a CT scan of the head that came back negative and did not show any evidence of any acute infarct, but did show cerebral atrophy. Also, by the time the patient came to the ER and was given glucose, her symptoms had completely reversed. I examined the patient at bedside, and by the time, I went to the bedside, the patient was already awake, alert, oriented, and her only complaint at the bedside is low back pain. The patient states that she has had chronic severe low back pain for several years and recently about a few weeks ago underwent a lumbar spinal surgery-diskectomy and fusion, and despite the surgery, the patient's pain relief has not happened. The patient at this time states that she is in severe pain and is requesting pain medications and nothing else. The patient also states that she has panic attacks and wants something to calm her down. is at the bedside and helps me with history. At this time, the patient denies any headaches, blurry vision, chest pain, shortness of breath above baseline (the patient is chronically short of breath and feels smothered because of her obesity every time she lays flat). Denies any nausea, vomiting, abdominal pain, dysuria at this time. On questioning, the patient also denies any history of TIA or strokes, but an episode like this had happened before and her sugars had dropped again. Her states that this is not the first time it has happened. He has taken the insulin pump away from her, but this morning, she accidentally put it on, so it is a strange history that I am getting here. PAST MEDICAL HISTORY: Significant for, 1. Chronic intractable low back pain from degenerative disk disease of the lumbar spine, status post lumbar spinal surgery very recently. 2. Insulin-requiring diabetes mellitus, for which the patient is supposed to be off insulin pump, but she "accidentally" put in on. 3. Morbid obesity. 4. Obstructive sleep apnea. 5. Hypertension. 6. Dyslipidemia. 7. Recent episode of C. diff colitis. 8. There is also history of diverticulitis and obesity hypoventilation syndrome. 9. The patient apparently also has chronic kidney disease stage 3 and also other complications of diabetes including neuropathy. 10.The patient has had multiple hospitalizations in the past. History And Physical [address] [address] NAME: ITALIA GAMBOA : 47 STATUS : ADM Doc PAT#: [id number] AGE: 71 ADM/REG DATE : 08/25/16 MR#: [id number] REPORT SERV DATE: 08/25/16 DICTATED BY: LAURA BATRES DATE: 08/25/16 REPORT STATUS : Draft TRANSCRIBED BY: JAYA DATE: 08/25/16 FAMILY HISTORY: Significant for diabetes. SOCIAL HISTORY: The patient does not use any tobacco, alcohol, or illicit drugs. ALLERGIES: THE PATIENT HAS AN EXTENSIVE ALLERGY LIST AND THIS INCLUDES THE FOLLOWING. THE PATIENT IS ALLERGIC TO NONSTEROIDAL ANTI-INFLAMMATORY MEDICATIONS, PENICILLIN, ASPIRIN, SULFA, ADHESIVE TAPE. HOME MEDICATIONS: Include insulin pump, sertraline or Zoloft 100 mg p.o. at bedtime, Neurontin 100 mg p.o. q.8 hours, Wilbur 5/325 one p.o. q.4 hours, Protonix 40 mg once at bedtime, Pristiq 50 mg once at bedtime, Lipitor 20 mg once at bedtime, hydralazine 25 mg p.o. q.8 hours, vancomycin 125 mg p.o. every six hours, Lotensin 10 mg p.o. at bedtime, Pepcid 20 mg p.o. b.i.d., and tizanidine 4 mg p.o. t.i.d. PHYSICAL EXAMINATION: GENERAL: The patient is alert and oriented at this time and her only complaint is severe back pain and is requesting something for pain now. Her skin and mucous membranes appear well hydrated. VITAL SIGNS: Show that her blood pressure is 100/70, oxygen saturation is 97% on 2 L of oxygen per nasal cannula. The patient is afebrile. Pulse is 77 per minute. HEENT: Unremarkable. I could not appreciate any JVD or thyromegaly, but the patient has a morbidly obese and thick neck with fatty folds in the neck because of the obesity. CARDIOVASCULAR SYSTEM: S1 and S2 appreciated. Sinus rhythm. No murmurs, rubs, or gallops noted. RESPIRATORY SYSTEM: Clear lungs. No rales or rhonchi noted, but poor ventilation noted, probably from OHS. ABDOMEN: Obese, soft, nontender, and nondistended. Bowel sounds are appreciated. No organomegaly. No hepatosplenomegaly at this time. EXTREMITIES: There is no pedal edema. Pedal pulses are felt bilaterally. NEUROLOGIC: No deficits at this time. The patient is able to move all four extremities with no deficits. Specifically noted, there is no facial droop at this time. MUSCULOSKELETAL: Severe low back pain from severe DJD of the lumbar spine and recent lumbar spinal surgery. PSYCHIATRIC: Positive for depression for which the patient takes two medications, Zoloft and Pristiq, and this will be continued. LABORATORY DATA: Labs that I have on this patient include a CBC that shows a WBC count of 7.4, hemoglobin 8.8, hematocrit 26.3, platelet count of 211. INR is 1.1. Chem profile shows normal electrolytes, BUN, and creatinine. Troponin I is negative. Magnesium is normal. Brain CT scan without contrast is negative for any acute stroke. Right now, her sugar is back up to 121. The patient also had a lumbar spinal CT without contrast and this shows that the patient has History And Physical [address] [place]. [address] NAME: ITALIA GAMBOA VALE : 47 STATUS : ADM Doc PAT#: [id number] AGE: 71 ADM/REG DATE : 08/25/16 MR#: [id number] REPORT SERV DATE: 08/25/16 DICTATED BY: LAURA BATRES DATE: 08/25/16 REPORT STATUS : Draft TRANSCRIBED BY: JAYA DATE: 08/25/16 had anterior fusions at L3-L4 and L4-L5 in good position, but there remains a high-grade canal stenosis at L4-L5 and there is now herniation into the right foramina which could explain intermittent right L4 nerve root irritation. However, the patient does have severe back pain at this time. ASSESSMENT: On my assessment on this patient is: 1. Acute intractable low back pain from degenerative disk disease of the lumbar spine and nerve root compression-admit the patient with pain control. At this time, we will give her Lortab 7.5/325 one p.o. q.6 hours scheduled, but hold for excess sedation with IV Dilaudid 1 mg every four hours p.r.n. for breakthrough pain. 2. Possible transient ischemic attack, however, the patient's CT scan of the head is completely normal and the patient has had a recent MRI of the brain that has come back normal except for some atrophy. So, at this time, I will not repeat another MRI, MRA, etc., we will just watch patient in observation over the next 24 to 48 hours. 3. Immobility from intractable low back pain and also from morbid obesity. The patient also has obstructive sleep apnea, obesity hypoventilation syndrome. For this, we will let the patient to use her home CPAP with home CPAP settings. 4. Insulin-requiring diabetes mellitus. At this time, as the patient's insulin pump has caused her to be hypoglycemic multiple times with multiple admissions, we will definitely stop the insulin pump and advised family including to never let the patient use insulin pump. At this time, we will start out with SSI level 3 and then start her on a long-acting insulin after watching how much of the SSI she is going to require in the next 12 to 24 hours. 5. Regarding her other medications that she uses on a regular basis at home for depression, we will continue that. 6. Regarding her vancomycin for recent Clostridium difficile infection. We will let her continue to take that so that she can finish up the course even though she is asymptomatic at this time. Since she is also complaining of low back pain, the most likelihood of the pain is secondary to lumbar neuropathy, however, we will go ahead and check a urine culture and sensitivity to rule out a urinary tract infection in this patient. This patient may need inpatient rehab placement from the get go, I am not sure. However, we will admit her for 24-hour observation and see how she does in the next 24 to 48 hours and then decide from there. RRA/JAYA Laura Batres M.D. / [id number] CC: Alexx Gomez M.D.
[~2016-08-25 13:01] MED LIST changes: +APRES25 PO; +CYANO1000T PO; +LOTE10 PO; +PEP20 PO; +VANCOCIN HCL125 MG PO
[2016-08-25] MEDS ORDERED: ZANAFLEX 4 MG TA4 MG PO (13:25)
[2016-08-25 13:52] LABS: BASOPHILS 0.1 %; BASOPHILS ABSOLUTE 0.01 10/3/uL (0.0-0.16); EOSINOPHILS 0.3 %; EOSINOPHILS ABSOLUTE 0.02 10/3/uL (0.0-0.53); HEMATOCRIT 26.3 % (36.0-48.0); HEMOGLOBIN 8.8 g/dL (12.0-16.0); IMMATURE GRANULOCYTES 0.4 %; IMMATURE GRANULOCYTES ABSOLUTE 0.03 10/3/uL (0.0-0.11); LYMPHOCYTES 10.5 %; LYMPHOCYTES ABSOLUTE 0.78 10/3/uL (0.67-4.30); MANUAL DIFF NO %; MEAN CORPUS HGB CONC 33.5 g/dL (32.0-36.0); MEAN CORPUSCULAR HEMOGLOB 31.8 pg (26.0-34.0); MEAN CORPUSCULAR VOLUME 94.9 fL (80-100); MONOCYTES 6.5 %; MONOCYTES ABSOLUTE 0.48 10/3/uL (0.21-1.20); NEUTROPHILS 82.2 %; PLATELET COUNT 211 10/3/uL (150-400); RBC DISTRIBUTION WIDTH 14.8 % (12.0-16.0); RED CELL COUNT 2.77 10/6/uL (4.0-5.6); WHITE BLOOD CELLS 7.4 10/3/uL (4.5-10.5)
[2016-08-25 13:59] LABS: INTERNATIONAL NORMAL RATI 1.1 UNITS (-); PARTIAL THROMBO TIME 25.7 SEC (22.5-37.2); PROTIME (NOT ORD) 14.4 SEC (12.0-14.5)
[2016-08-25 14:06] LABS: CALCIUM, SERUM 8.4 MG/DL (8.5-10.4); CHEST PAIN PROFILE TAT 0 Hrs 20 Mins; CHLORIDE, SERUM 104 MMOL/L (96-112); CO2 (CARBON DIOXIDE) 25 MMOL/L (24-34); CREATININE 0.99 MG/DL (0.55-1.02); GFR AFRICAN AMERICAN 67 ML/MIN (>=60); GFR NON AFRICAN AMERICAN 58 ML/MIN (>=60); SODIUM, SERUM 140 MMOL/L (135-148); TROPONIN I 0.04 NG/ML (<0.05)
[2016-08-25 14:09] LABS: BUN (BLOOD UREA NITROGEN) 15 MG/DL (6-23); GLUCOSE, SERUM 103 MG/DL (60-99); POTASSIUM, SERUM 4.4 MMOL/L (3.5-5.3)
[2016-08-26 04:37] LABS: BASOPHILS 0.3 %; BASOPHILS ABSOLUTE 0.02 10/3/uL (0.0-0.16); EOSINOPHILS ABSOLUTE 0.06 10/3/uL (0.0-0.53); HEMOGLOBIN 10.5 g/dL (12.0-16.0); IMMATURE GRANULOCYTES 0.3 %; IMMATURE GRANULOCYTES ABSOLUTE 0.02 10/3/uL (0.0-0.11); LYMPHOCYTES 20.7 %; LYMPHOCYTES ABSOLUTE 1.28 10/3/uL (0.67-4.30); MEAN CORPUS HGB CONC 32.9 g/dL (32.0-36.0); MEAN CORPUSCULAR HEMOGLOB 31.3 pg (26.0-34.0); MEAN CORPUSCULAR VOLUME 95.2 fL (80-100); MEAN PLATELET VOLUME 9.4 fL (9.2-13.0); MONOCYTES 8.4 %; MONOCYTES ABSOLUTE 0.52 10/3/uL (0.21-1.20); NEUTROPHILS 69.3 %; NEUTROPHILS ABSOLUTE 4.29 10/3/uL (2.02-8.40); PLATELET COUNT 255 10/3/uL (150-400); RBC DISTRIBUTION WIDTH 14.8 % (12.0-16.0); WHITE BLOOD CELLS 6.2 10/3/uL (4.5-10.5)
[2016-08-26 04:39] LABS: HEMATOCRIT 31.9 % (36.0-48.0); MANUAL DIFF NO %; RED CELL COUNT 3.35 10/6/uL (4.0-5.6)
[2016-08-26 04:49] LABS: BUN (BLOOD UREA NITROGEN) 14 MG/DL (6-23); CALCIUM, SERUM 8.9 MG/DL (8.5-10.4); CHLORIDE, SERUM 102 MMOL/L (96-112); CO2 (CARBON DIOXIDE) 28 MMOL/L (24-34); CREATININE 1.08 MG/DL (0.55-1.02); GFR AFRICAN AMERICAN 60 ML/MIN (>=60); GFR NON AFRICAN AMERICAN 52 ML/MIN (>=60); POTASSIUM, SERUM 4.2 MMOL/L (3.5-5.3); SODIUM, SERUM 141 MMOL/L (135-148)
[2016-08-26 04:51] LABS: GLUCOSE, SERUM 179 MG/DL (60-99)
[2016-08-26 05:41] LABS: BE (BASE EXCESS) 1.7 MEQ/L (0 +/- 2.5); CARBOXYHEMOGLOBIN 0.6 % (0-3); DEVICE NC; HCO3 (ACTUAL BICARBONATE) 27.3 MEQ/L (23-27); HEMOBLOGIN CONTENT 13.4 G/DL (12-16); INSTRUMENT SERIAL # 8083; METHEMOGLOBIN 0.3 % (0-3); O2 CONTENT 18.7 VOL% (18-24); OPERATOR ID 16469; PCO2 (CO2 TENSION) 47 MMHG (35-45); PO2 (O2 TENSION) 139 MMHG (79-93); SAMPLE Arterial; pH 7.38 (7.37-7.43)
[2016-08-26 06:55] LABS: ASCORBIC ACID (UR NOT ORDER) NEG (NEG); BILIRUBIN, URINE NEGATIVE (NEG); KETONE, URINE NEGATIVE (NEG); LEUKOCYTE ESTERASE(NOT OR NEG (NEG); WBC (NOT ORDERED) (RFLEX) 4 (0-5)
[2016-08-26] MEDS ORDERED: BUSPAR5 PO (09:59)
[2016-08-26] MEDS ORDERED: LANTUSCART SQ (10:03)
[2016-08-26] MEDS ORDERED: NOVOPENMIX SC (10:04)
[2016-09-24] MEDS ORDERED: ENDOCET1 TA3 PO (12:49)
[2016-09-24] MEDS ORDERED: ZOFRAN4 PO (12:51)
[2016-09-24] MEDS ORDERED: HUMALOGMIX SC (12:58)
[2016-09-24] MEDS ORDERED: LANTUS SC (13:00)
== END 2016-08-26 10:26 | disposition home or self-care (01) ==
LOC: ER 13:01 → 1SO 17:20
PROVIDERS: Emergency Medicine
DX: M54.5 Low back pain (principal); R07.9 Chest pain, unspecified; E16.2 Hypoglycemia, unspecified; G45.9 Transient cerebral ischemic attack, unspecified; F41.9 Anxiety disorder, unspecified; I10 Essential (primary) hypertension; E66.01 Morbid (severe) obesity due to excess calories; R06.89 Other abnormalities of breathing; G47.33 Obstructive sleep apnea (adult) (pediatric); E11.9 Type 2 diabetes mellitus without complications; E78.5 Hyperlipidemia, unspecified; Z88.2 Allergy status to sulfonamides; Z88.0 Allergy status to penicillin; Z88.8 Allergy status to other drugs, medicaments and biological substances
CPT/HCPCS: 70450; 72131; 80048; 81001; 82805; 82962; 83036; 83735; 84484; 85025; 85610; 85730; 93005; 96372; 96374; 96376; 99285; A9270-GY; G0378; J1170

== ENCOUNTER 2016-10-05 10:53 | Inpatient (IN) | payer BC, MEDICARE ==
[2016-09-28 12:56] LABS: HEMATOCRIT 39.6 % (36.0-48.0); HEMOGLOBIN 12.8 g/dL (12.0-16.0)
[2016-09-28 13:09] LABS: CHLORIDE, SERUM 101 MMOL/L (96-112); CO2 (CARBON DIOXIDE) 31 MMOL/L (24-34); POTASSIUM, SERUM 4.4 MMOL/L (3.5-5.3); SODIUM, SERUM 138 MMOL/L (135-148)
[2016-09-28 13:10] LABS: BUN (BLOOD UREA NITROGEN) 36 MG/DL (6-23); CALCIUM, SERUM 10.2 MG/DL (8.5-10.4); CREATININE 1.96 MG/DL (0.55-1.02); GFR AFRICAN AMERICAN 29 ML/MIN (>=60); GFR NON AFRICAN AMERICAN 25 ML/MIN (>=60); GLUCOSE, SERUM 140 MG/DL (60-99)
--- NOTE | ~2016-10-05 | OP ---
Record Of Operation [facility] [address] [place]. [address] NAME: ITALIA GAMBOA : 47 STATUS : ADM IN PAT#: [id number] AGE: 71 ADM/REG DATE : 10/05/16 MR#: [id number] REPORT SERV DATE: 10/06/16 DICTATED BY: MEGAN BARRERA II DATE: 10/06/16 REPORT STATUS : Draft TRANSCRIBED BY: MODL DATE: 10/06/16 DATE OF PROCEDURE: 10/05/2016 PREOPERATIVE DIAGNOSES: 1. Right lower extremity severe radiculopathy. 2. L4-5 spondylolisthesis. 3. Severe stenosis, L3-4, L4-5. POSTOPERATIVE DIAGNOSES: 1. Right lower extremity severe radiculopathy. 2. L4-5 spondylolisthesis. 3. Severe stenosis, L3-4, L4-5. PROCEDURES: 1. Posterior laminectomy and facetectomy for decompression of the L3, L4, and L5 nerve roots. 2. Posterolateral arthrodesis, L3-4, L4-5. 3. Posterior segmental instrumentation, L3-4, L4-5. 4. Use of local autograft, allograft substitute, and bone morphogenic protein. 5. Use of the microscope and stereotactic spinal imaging. SURGEON: Megan Barrera M.D. FLUIDS: 1500 mL LR. ESTIMATED BLOOD LOSS: Approximately 150 mL. IMPLANTS: Alphatec. PREOPERATIVE HISTORY: This is a very friendly 71-year-old female, who has been suffering severely with the back, buttock, and leg pain. She underwent an anterior instrumentation two months ago. The plan was to perform the stage II posterior surgery two days later. Unfortunately, between the stage I surgery and the planned stage II surgery two days later she; however, developed severe confusion, and ultimately was in the hospital for approximately one week secondary to mental status changes. Ultimately, it was felt that this was related to medication. Ultimately, the family and I decided it was best not to proceed with a stage II surgery at that time, and simply see how she did clinically, although I suspected her leg pain would still continue, but overall medically speaking we felt it was in her best interest to observe her, and let her recover from the for surgery. In the interval as suspected, she still continued to have severe back and leg pain. She on imaging does show some subsidence of the prosthetic device at L4-5. Her bone quality was slightly soft. I also felt that the abnormal translation occurring from the spondylolisthesis was also likely contributing to the subsidence of the implant. I did not feel that an anterior surgery was necessary to reconstruct or treat the subsidence. I felt the posterior instrumentation fusion should be able to control this aspect. Record Of Operation [facility] [address] [place]. [address] NAME: ITALIA GAMBOA : 47 STATUS : ADM IN PAT#: [id number] AGE: 71 ADM/REG DATE : 10/05/16 MR#: [id number] REPORT SERV DATE: 10/06/16 DICTATED BY: MEGAN BARRERA II DATE: 10/06/16 REPORT STATUS : Draft TRANSCRIBED BY: JAYA DATE: 10/06/16 I discussed with her extensively as well as her family the fact that she was not in the picture of health. She is in severe and intractable pain, and overall of course proceeding with the surgery for humane reasons. Again, I have discussed to them extensively that her diabetes and her weight are not helping us of course, and I do put her at increased risk for infection and wound complications. I discussed with her also that this was not going to let her back pain go away. I advised her that the success rates were quite high for decreasing the radiculopathy. I felt that we should be able to decrease her back pain marginally. She voiced understanding. I have discussed this with her on several occasions, and he appears to be extremely intelligent, and voices understanding of the expected outcomes. DESCRIPTION OF PROCEDURE: After informed consent was obtained, Ms Gamboa was brought to the operating room at her request, and general anesthesia was achieved. She was placed in the prone position. The back was prepped and draped in a sterile fashion. The stereotactic spinal imaging was now instituted. The stereotactic pin was placed and the intraoperative CT scan completed. Next, the minimally invasive incision was now performed on the left for placement of percutaneous screws into L3, L4, and L5. This was done and a repeat CT scan confirmed acceptable placement of the implants. At this point, the favian was then well assembled and final tightening was performed on this left side. This was done as we needed to also during that time obtained the deep custom blade retractors. At this point, the deep custom retractors were available, and the incision was made on the right side, and the soft tissue dissection was performed through the minimally invasive approach down to L3-4 and L4-5. Overall, the surgery was extremely difficult because of her size. Her body mass index is 50. Now, the positioning alone took a considerable amount of time and overall the surgery did proceed overall well, but took an extended amount of time because of the soft tissue envelope as well as the severity of the stenosis. The surgery overall took much longer than normal. At this point, the microscope was brought into place, and under microscopic visualization, the facetectomy was performed at L4-5. The facets were extremely hypertrophic. The pedicle to-pedicle decompression was now achieved at L4-5. Both nerve roots were found to be severely compressed. The ligamentum flavum was now removed, and the central canal was well decompressed. The [id number] decompression on the right now allowed identification and decompression of both the L4 and L5 nerve roots. At this point, the L3-4 level was also treated with facetectomy. Once again, the L3 and L4 nerve roots were evaluated. Both nerve roots were identified as having significant compression. Both nerve roots were now well decompressed. At this point, following irrigation, the transverse processes also were well dissected upon at L3, L4, and L5. The pedicle screws were now placed with the stereotactic guidance system into L3, L4, and L5. The bone quality was reasonable, but again slightly osteoporotic. Record Of Operation [facility] [address] [facility] [place]. [address] NAME: ITALIA GAMBOA : 47 STATUS : ADM IN PAT#: [id number] AGE: 71 ADM/REG DATE : 10/05/16 MR#: [id number] REPORT SERV DATE: 10/06/16 DICTATED BY: MEGAN BARRERA II DATE: 10/06/16 REPORT STATUS : Draft TRANSCRIBED BY: MODL DATE: 10/06/16 At this point, the repeat CT scan once again confirmed acceptable placement of the implants. The favian was now assembled and final tightening was performed. Next, the decortication was performed of the transverse processes of L3, L4, and L5. Local autograft, allograft substitute, and bone morphogenic protein were placed along the decorticated surfaces. A deep drain was placed followed by standard closure. The patient was then extubated and transferred to the PACU in stable condition. SALVADOR/JAYA Megan Barrera II, M.D. / [id number] CC: Alexx [place] II, M.D.
[~2016-10-05 10:53] MED LIST changes: +BUSPAR5 PO; +ENDOCET1 TA3 PO; +HUMALOGMIX SC; +LANTUS SC; +LANTUSCART SQ; +NOVOPENMIX SC; +ZANAFLEX 4 MG TA4 MG PO; +ZOFRAN4 PO
== END 2016-10-08 14:48 | DRG 460 ==
LOC: SDC/OF 10:53 → 3SO 19:56
PROVIDERS: Orthopaedic Surgery
PROC: 0SG1071 Fusion of 2 or more Lumbar Vertebral Joints with Autologous Tissue Substitute, Posterior Approach, Posterior Column, Open Approach (ICD-10-PCS; principal; 2016-10-05 12:15)
PROC: 4A11X4G Monitoring of Peripheral Nervous Electrical Activity, Intraoperative, External Approach (ICD-10-PCS; 2016-10-05 12:15)
DX: M51.16 Intervertebral disc disorders with radiculopathy, lumbar region (principal); E11.9 Type 2 diabetes mellitus without complications; I10 Essential (primary) hypertension; F32.9 Major depressive disorder, single episode, unspecified; Z88.6 Allergy status to analgesic agent; Z88.0 Allergy status to penicillin; Z88.2 Allergy status to sulfonamides; Z79.4 Long term (current) use of insulin; Z79.899 Other long term (current) drug therapy; Z98.890 Other specified postprocedural states; Z90.710 Acquired absence of both cervix and uterus; Z80.8 Family history of malignant neoplasm of other organs or systems; Z82.49 Family history of ischemic heart disease and other diseases of the circulatory system; Z82.3 Family history of stroke
CPT/HCPCS: 80048; 82962; 85014; 85018; 87641; 88304; 88311; 93005; 97112-GO; 97162-GP; 97166-GO; 97530-GP; 97535-GO; A9270-GY; C1713; C1769; G8978-CM-GP; G8979-CK-GP; J0360; J0690; J1170; J1644; J2175; J2250; J2270; J2370; J2405; J2550; J2710; J3010; J3370